=== PATIENT | female | born 1990 | race Caucasian/White ===

== ENCOUNTER → 2016-07-26 | Outpatient (CLI) | payer BC, OTHER ==
[2016-07-26 11:07] LABS: CH 29.9; CHCM 33.5; HCT 35.8 % (34.0-46.0); HDW 2.79; MCH 30.1 pg (25.0-35.0); MCHC 33.4 g/dL (31.0-37.0); MCV 89.9 fL (80.0-100.0); Mean Platelet Volume 8.1; RBC 3.98 m/uL (3.80-5.40); RDW 15.1 % (11.5-15.5); WBC 6.9 k/uL (3.8-10.6)
== END | disposition home or self-care (01) ==
LOC: LABWHC1 10:45
PROVIDERS: ATTEND Obstetrics & Gynecology
DX: Z34.82 Encounter for supervision of other normal pregnancy, second trimester (principal); Z3A.00 Weeks of gestation of pregnancy not specified
CPT/HCPCS: 36415; 82950; 85027

== ENCOUNTER → 2016-10-04 | Outpatient (CLI) | payer BC, OTHER ==
--- NOTE | 2016-10-04 15:35 | US ---
EXAMINATION TYPE: US OB anatomy transabd DATE OF EXAM: 10/04/2016 12:34 PM COMPARISON: US in PACS HISTORY: 26-year-old female [id number] LARGE FOR DATES LGA, pt has no complaints at this time TECHNIQUE: Transabdominal (TA) EXAM MEASUREMENTS: GESTATIONAL AGE / DATING Physician Established: (35 weeks/0 days) EDC: 11/08/2016 Dates by LMP: (35 weeks/0 days) EDC: 11/08/2016 Dates by First Scan: (35 weeks/2 days) EDC: 11/06/2016 Dates by Current Scan for: (35 weeks/1 days) EDC: 11/07/2016 SURVEY IUP: Single PLACENTA: Posterior PREVIA: No previa LYNDSEY: 12.9 cm Normal CERVICAL LENGTH (transabdominal: norm > 3.0cm): 3.1 cm BIOMETRY PRESENTATION: Vertex BPD: 8.9 cm 36 weeks / 1 days HC: 31.9 cm 35 weeks / 6 days AC: 31.5 cm 35 weeks / 3 days FL: 6.8 cm 35 weeks / 0 days ESTIMATED WEIGHT IN GRAMS: 2684 grams ESTIMATED WEIGHT IN LBS/OZS: 5 lbs. 15 oz. WEIGHT PERCENTAGE BASED ON ESTABLISHED DATE: 60.6 % HC/AC: 1.01 Normal FL/AC: 22 Normal HEART RATE: 146 bpm RHYTHM: Normal ANATOMY SEEN (within normal limits): Lateral Vent (< 1 cm) 0.8 cm Four Chamber Heart Stomach Situs Nose / Lips Diaphragm Kidneys (bilateral) -no pelvicaliectasis. Bladder-moderately distended. Three Vessel Cord Longitudinal Spine ANATOMY NOT SEEN: Cisterna Magna (< 1.1 cm) Cerebellum (varies with age) Choroid Plexus (bilateral) Midline Falx Cavus Septi Pellucidi Outflow tracts: LVOT/RVOT Arms (bilateral) Legs (bilateral) Cord Insert Transverse Spine CEMENT TESTER ASSISTANT NOTES: Single, viable IUP/ Growth parameters wnl/ Anatomy visualized on today's scan appe ars wnl IMPRESSION: Single live intrauterine with established gestational age of 35 weeks 0 days by LMP. Curren t ultrasound biometry remains concordant (35 weeks 1 day) placing the child at the 60th percentile fo r weight.
== END | disposition home or self-care (01) ==
LOC: RADUSWWP 12:16
PROVIDERS: ATTEND Obstetrics & Gynecology
DX: O36.63X0 Maternal care for excessive fetal growth, third trimester, not applicable or unspecified (principal); Z3A.35 35 weeks gestation of pregnancy
CPT/HCPCS: 76811

== ENCOUNTER 2016-11-02 06:00 | Inpatient (IN) | payer BC, OTHER ==
--- NOTE | 2016-11-02 05:48 | P.HPOB ---
History of Present Illness H&P Date: 11/02/16 Chief Complaint: Patient is presenting for induction of labor. This patient is a pleasant 26-year-old 4 para 2 female estimated date of confinement 11/08/2016 estimated gestational age 39-2/7 weeks who presents to labor and delivery secondary to history of thromboembolism on oral contraception. Patient was on Lovenox throughout this due to prophylaxis, she is now favorable cervix after 39 weeks and I recommended to proceed with delivery. care otherwise complicated by late to seek care at approximately 17 weeks. Review of Systems Constitutional: Denies chills, Denies fever Ears, nose, mouth and throat: Denies headache, Denies sore throat Cardiovascular: Denies chest pain, Denies shortness of breath Respiratory: Denies cough Gastrointestinal: Reports heartburn Genitourinary: Reports Menstruation: Reports amenorrhea Musculoskeletal: Denies myalgias Neurological: Denies numbness, Denies weakness Past Medical History Past Medical History: Deep Vein Thrombosis (DVT) Additional Past Medical History / Comment(s): Patient had a extensive DVT approximately 1-1/2 years ago that occurred while on the control pill and tobacco use. History of Any Multi-Drug Resistant Organisms: None Reported Additional Past Surgical History / Comment(s): Dilation and currettage Past Anesthesia/Blood Transfusion Reactions: No Reported Reaction Past Psychological History: No Psychological Hx Reported Smoking Status: Former smoker Past Alcohol Use History: None Reported Past Drug Use History: None Reported Medications and Allergies Home Medications Medication Instructions Recorded Confirmed Type Tva-Sbtn-Qupsq Acid 1 tab PO DAILY 02/25/14 06/27/14 History [-U Capsule (formulary)] Allergies Allergy/AdvReac Type Severity Reaction Status Date / Time No Known Allergies Allergy Verified 06/27/14 21:11 Exam - OBG Physical Exam Abdomen: bowel sounds normal, no diffuse tenderness, no bruit present, no guarding noted, no hepatomegaly, no splenomegaly, no mass Vulva: both: normal Cervix: no lesion, no discharge Uterus: enlarged (Fundal height was 38 cm.) Results blood work shows she is A positive, rubella immune, RPR nonreactive, hepatitis B negative, HIV is nonreactive, Glucola was normal, B strep was negative, had normal light of factor V and prothrombin levels. Ultrasounds have been normal. Assessment and Plan (1) Third trimester Narrative/Plan: This is a pleasant 26-year-old 4 para 2 female 39-2/7 weeks gestation with history of thromboembolism in the past who presents now for delivery. Plan is induction of labor and anticipate vaginal delivery. Status: Acute (2) Elective induction of labor planned Status: Acute (3) History of thromboembolism Status: Acute
[2016-11-02] MEDS ORDERED: LIDOCAINE 1% (PF) 10 MG/ML (30 ML SDV) SQ PRN (06:33)
[2016-11-02] MEDS ORDERED: METHYLERGONOVINE 0.2 MG/ML 1 ML AMP IM PRN (06:33)
[2016-11-02] MEDS ORDERED: TERBUTALINE 1 MG/ML VIAL SQ PRN (06:33)
[2016-11-02] MEDS ORDERED: OXYTOCIN 20 UNITS/1000 ML NS 1,000 ML IV SCH ×2 (06:33→14:13)
[2016-11-02] MEDS ORDERED: CARBOPROST TROMETHAMINE 250 MCG/ML 1 ML AMP IM PRN (06:33)
[2016-11-02] MEDS ORDERED: OXYTOCIN 10 UNIT/ML 1 ML VIAL IM PRN (06:33)
[2016-11-02 06:43] VITALS: RESP 16; BMI 28.3
[2016-11-02] MEDS: LACTATED RINGERS 1,000 ML IV SCH ×2 (06:44→10:33)
[2016-11-02 06:50] LABS: Basophils % (A) 0 %; CH 29.3; CHCM 34.1; Eosinophils # (A) 0.1 k/uL (0-0.7); Eosinophils % (A) 1 %; HCT 38.1 % (34.0-46.0); HDW 3.18; HGB 12.8 gm/dL (11.4-16.0); Luc # (Auto) 0.16; Luc % (Auto) 2; Lymphocytes # (A) 2.6 k/uL (1.0-4.8); Lymphocytes % (A) 32 %; MCH 28.9 pg (25.0-35.0); MCHC 33.5 g/dL (31.0-37.0); MCV 86.2 fL (80.0-100.0); Mean Platelet Volume 8.4; Monocytes # (A) 0.4 k/uL (0-1.0); Monocytes % (A) 5 %; Neutrophils % (A) 60 %; RBC 4.42 m/uL (3.80-5.40); RDW 14.4 % (11.5-15.5); WBC 8.2 k/uL (3.8-10.6)
[2016-11-02 06:58] LABS: INR 0.9 (<1.1); Prothrombin Time 9.3 sec (9.0-12.0)
[2016-11-02] MEDS ORDERED: SODIUM CHLORIDE 0.9% 100 ML BAG ONE (11:07)
[2016-11-02] MEDS ORDERED: BUPIVACAINE (PF) 0.25% 30 ML VIAL ONE (11:07)
[2016-11-02] MEDS ORDERED: fentaNYL (PF) 50 MCG/ML 5 ML AMP ONE (11:07)
[2016-11-02] MEDS ORDERED: SIMETHICONE 80 MG CHEWABLE PO PRN (14:13)
[2016-11-02] MEDS ORDERED: LANOLIN CREAM 5 GM TUBE TOPICAL PRN (14:13)
[2016-11-02] MEDS ORDERED: diphenhydrAMINE 50 MG/ML 1 ML VIAL IVP PRN (14:13)
[2016-11-02] MEDS ORDERED: ACETAMINOPHEN TAB 325 MG TAB PO PRN (14:13)
[2016-11-02] MEDS ORDERED: HYDROCORTISONE 2.5% RECTAL CREAM 30 GM TUBE RECTAL PRN (14:13)
[2016-11-02] MEDS ORDERED: BISACODYL 10 MG SUPP RECTAL PRN (14:13)
[2016-11-02] MEDS ORDERED: BENZOCAINE/MENTHOL SPRAY 1 GM/SPRAY AEROSOL TOPICAL PRN (14:13)
[2016-11-02] MEDS ORDERED: ZOLPIDEM 5 MG TAB PO PRN (14:13)
[2016-11-02] MEDS ORDERED: diphenhydrAMINE 25 MG CAP PO PRN (14:13)
[2016-11-02] MEDS ORDERED: WITCH HAZEL 1 EACH MED..PAD TOPICAL PRN (14:13)
[2016-11-02] MEDS: IBUPROFEN 600 MG TAB PO PRN (14:48)
--- NOTE | 2016-11-02 17:31 | P.PROBDLV ---
Vaginal Delivery Note - . Vaginal Delivery Note: Normal vaginal delivery viable male infant Apgars are 9 and 9 delivery time 1343 hrs. Please see dictated H&P for intimate details of this patient's admission. Brief summary this is a pleasant 26-year-old 4 para 2 female 39 and one sevenths weeks gestation who is admitted to labor and delivery for induction of labor. Patient did have coagulation factors checked on admission due to Lovenox use that she quit about 2 or 3 days ago. These are normal. Patient has artificial rupture membranes at 2 cm for clear fluid. Labor is induced with Pitocin per protocol. Patient's labor progresses normally. Patient does get an epidural for pain control. She gets to complete pushes the head to the perineum. Posterior perineum is supported we have controlled delivery of 's head over the intact perineum. Mouth and nares are bulb suctioned there is no evidence of a nuchal cord. There is a hand presenting with posterior shoulder which is delivered spontaneously. We then have deliver the rest this infant's body. This is a vigorous viable male Apgars are 9 and 9 delivery time is 1347 hrs. After delivery of the infant the umbilical cord is doubly clamped and cut appears to be trivascular. Placenta is delivered spontaneously intact. Estimated blood loss is 150 mL. Inspection of perineum shows a first-degree posterior laceration which is repaired with 3-0 Vicryl in the usual fashion. She has previous disruption of the right labia from her first delivery. I did put 2 sutures in this area for added hemostasis. All counts correct 3. No complications. Infant and mother stable delivery room.
[2016-11-02] MEDS: SENNOSIDES-DOCUSATE SODIUM 1 EACH TAB PO SCH (21:53)
--- NOTE | 2016-11-03 05:41 | P.PNOBGVD ---
Subjective - Subjective Patient reports: Reports appetite normal, Reports voiding normally, Reports pain well controlled, Reports ambulating normally : doing well Objective - Latest Vital Signs Latest vital signs: Vital Signs Temp Pulse Resp BP Pulse Ox 11/03/16 00:00 98.3 F 71 16 126/75 11/02/16 20:00 97.6 F 86 16 130/89 11/02/16 16:25 97.4 F L 94 16 108/73 11/02/16 15:25 110 H 16 128/72 11/02/16 14:55 111 H 16 123/76 11/02/16 14:41 102 H 16 123/73 11/02/16 14:25 102 H 16 128/73 11/02/16 14:10 113 H 16 128/60 11/02/16 13:55 98.5 F 113 H 16 128/60 11/02/16 06:39 97 F L 81 16 142/68 99 Intake and Output 11/02/16 11/02/16 11/03/16 14:59 22:59 06:59 Output Total 750 150 Balance -750 -150 Output: Urine 600 Estimated Blood Loss 150 150 Other: # Voids 2 1 1 - Exam Lungs: bilateral: normal Chest: Normal S1, Normal S2 Extremities: Present: normal Abdomen: Present: normal appearance, soft Uterus: Present: normal, firm Assessment and Plan (1) Third trimester Narrative/Plan: day #1. A she is resting without complaints. She is planning going home later today was her baby has any feeding difficulties. Uterus is firm nontender she's having normal lochia. Plan is to continue routine care today. If she does stay she will begin her Lovenox tonight and continue this for 6 weeks due to her history of thromboembolism. Current Visit: Yes Status: Acute Code(s): Z33.1 - STATE, INCIDENTAL SNOMED Code(s): 63811501 (2) Elective induction of labor planned Current Visit: No Status: Acute Code(s): FBF4866 - SNOMED Code(s): 095751198 (3) History of thromboembolism Current Visit: Yes Status: Acute Code(s): Z86.718 - PERSONAL HISTORY OF OTHER VENOUS THROMBOSIS AND EMBOLISM SNOMED Code(s): 658060880
--- NOTE | 2016-11-03 05:43 | P.DS ---
Providers Date of admission: 11/02/16 06:09 Expected date of discharge: 11/03/16 Attending physician: Rolf Salazar Primary care physician: Stated None - Discharge Diagnosis(es) (1) Third trimester Current Visit: Yes Status: Acute (2) Elective induction of labor planned Current Visit: No Status: Acute (3) History of thromboembolism Current Visit: Yes Status: Acute Hospital Course: Please see dictated H&P for intimate details of this patient's admission. Brief summary this is a pleasant 26-year-old 4 para 2 female 39 and one sevenths weeks gestation who is admitted to labor and delivery for induction of labor. Patient is admitted has uncomplicated induction of labor goes on to have a vaginal delivery viable male . Please see dictated delivery note. day 1 patient without complaints she wishes to go home. I did restart her on Lovenox later that evening due to her history of thromboembolism in the past. Patient's felt be stable for discharge home follow up with me in 6 weeks. She is to continue Lovenox for 6 weeks. Call should any fevers chills excessive vaginal bleeding and/or abdominal pain. Procedures: Induction of labor and normal vaginal delivery. Patient Condition at Discharge: Good Plan - Discharge Summary New Discharge Prescriptions: Ibuprofen [Motrin] 600 mg PO Q6HR PRN #40 tab PRN Reason: Mild Pain Or Fever >= 100.5 Discharge Medication List [id number] Acid [-U Capsule (formulary)] 1 tab PO DAILY [History] Ibuprofen [Motrin] 600 mg PO Q6HR PRN #40 tab 11/02/16 [Rx] Follow up Appointment(s)/Referral(s): Rolf Salazar MD [STAFF PHYSICIAN] - 12/08/16 10:15 am Patient Instructions/Handouts: Vaginal Delivery (DC) Activity/Diet/Wound Care/Special Instructions: No intercourse or anything per vagina for 6 weeks. Please call if any fever, chills, excessive vaginal bleeding, and/or abdominal pain. Please restart your Lovenox each evening is taken during the Discharge Disposition: HOME SELF-CARE
[2016-11-03] MEDS: IBUPROFEN 600 MG TAB PO PRN ×2 (06:40→13:29)
[2016-11-03] MEDS: SENNOSIDES-DOCUSATE SODIUM 1 EACH TAB PO SCH (08:16)
[2016-11-03 15:54] VITALS: BP 124/78; PULSE 66; TEMP 98.4
[2016-11-03] MEDS ORDERED: ENOXAPARIN 40 MG/0.4 ML SYRINGE SQ SCH (21:00)
== END 2016-11-03 20:50 | disposition home or self-care (01) | DRG 775 ==
LOC: 4FBP 06:09
PROVIDERS: ADMIT Obstetrics & Gynecology; ATTEND Obstetrics & Gynecology
PROC: 00HU33Z Insertion of Infusion Device into Spinal Canal, Percutaneous Approach (ICD-10-PCS; principal; 2016-11-02)
PROC: 3E0R3CZ (ICD-10-PCS; principal; 2016-11-02)
PROC: 3E033VJ Introduction of Other Hormone into Peripheral Vein, Percutaneous Approach (ICD-10-PCS; principal; 2016-11-02)
PROC: 10907ZC Drainage of Amniotic Fluid, Therapeutic from Products of Conception, Via Natural or Artificial Opening (ICD-10-PCS; principal; 2016-11-02)
PROC: 10E0XZZ Delivery of Products of Conception, External Approach (ICD-10-PCS; principal; 2016-11-02)
DX: O70.0 First degree perineal laceration during delivery (principal); Z86.718 Personal history of other venous thrombosis and embolism; O09.33 Supervision of pregnancy with insufficient antenatal care, third trimester; Z87.891 Personal history of nicotine dependence; Z3A.39 39 weeks gestation of pregnancy; Z37.0 Single live birth
CPT/HCPCS: 85025; 85610; 85730; 88307

== ENCOUNTER → 2017-01-09 | Outpatient (CLI) | payer BC, OTHER ==
[2017-01-09 11:57] LABS: Basophils % (A) 1 %; CHCM 33.1; Eosinophils # (A) 0.1 k/uL (0-0.7); Eosinophils % (A) 2 %; HCT 37.7 % (34.0-46.0); HGB 12.6 gm/dL (11.4-16.0); Luc # (Auto) 0.12; Luc % (Auto) 2; Lymphocytes # (A) 1.9 k/uL (1.0-4.8); Lymphocytes % (A) 35 %; MCH 29.4 pg (25.0-35.0); MCHC 33.4 g/dL (31.0-37.0); Mean Platelet Volume 6.8; Monocytes # (A) 0.3 k/uL (0-1.0); Monocytes % (A) 5 %; Neutrophils # (A) 2.9 k/uL (1.3-7.7); Neutrophils % (A) 54 %; RBC 4.29 m/uL (3.80-5.40); RDW 14.5 % (11.5-15.5); WBC 5.4 k/uL (3.8-10.6); WBC (Perox) 5.44
== END | disposition home or self-care (01) ==
LOC: LABPAT 11:02
PROVIDERS: ATTEND Obstetrics & Gynecology
DX: Z01.812 Encounter for preprocedural laboratory examination (principal)
CPT/HCPCS: 85025

== ENCOUNTER 2017-01-15 06:27 | Day surgery (SDC) | payer BC, OTHER ==
[2017-01-10 14:38] VITALS: BMI 26.5
--- NOTE | 2017-01-12 07:46 | P.HPOB ---
History of Present Illness H&P Date: 01/12/17 Chief Complaint: Desires tubal ligation. This patient is a pleasant 27 year old female who is status post delivery of her 3rd child who is requesting permanent sterilization by tubal cauterization. Patient has had a DVT in the past on oral contraceptives and therefore is not a hormone candidate. Her partner will not get a vasectomy and she does not want any other form of control. This is the method she has chosen. Review of Systems Constitutional: Denies chills, Denies fever Ears, nose, mouth and throat: Denies headache, Denies sore throat Cardiovascular: Denies chest pain, Denies shortness of breath Respiratory: Denies cough Gastrointestinal: Denies abdominal pain, Denies diarrhea, Denies nausea, Denies vomiting Genitourinary: Denies dysuria, Denies hematuria Menstruation: Reports period normal Musculoskeletal: Denies myalgias Integumentary: Denies pruritus, Denies rash Neurological: Denies numbness, Denies weakness Past Medical History Past Medical History: Deep Vein Thrombosis (DVT) Additional Past Medical History / Comment(s): Patient had a extensive DVT approximately 1-1/2 years ago that occurred while on the control pill and tobacco use. History of Any Multi-Drug Resistant Organisms: None Reported Additional Past Surgical History / Comment(s): Dilation and currettage Past Anesthesia/Blood Transfusion Reactions: No Reported Reaction Past Psychological History: No Psychological Hx Reported Smoking Status: Former smoker Past Alcohol Use History: None Reported Past Drug Use History: None Reported - Past Family History Mother Family Medical History: No Reported History Medications and Allergies Home Medications Medication Instructions Recorded Confirmed Type No Known Home Medications [No 01/10/17 01/10/17 History Known Home Medications] Allergies Allergy/AdvReac Type Severity Reaction Status Date / Time No Known Allergies Allergy Verified 01/10/17 14:21 Exam - OBG Physical Exam Abdomen: bowel sounds normal, no diffuse tenderness, no bruit present, no guarding noted, no hepatomegaly, no splenomegaly, no mass Vulva: both: normal Vagina: normal moisture, no discharge Cervix: no lesion, no discharge Uterus: normal size Adnexa: both: normal Assessment and Plan (1) Family planning Narrative/Plan: This is a pleasant 27 yr female who is requesting laparoscopic bilateral tubal cauterization for permanent sterilization. She understands that this surgery is considered permanent, however there is ~20- failures per procedure. She also understands that if she does become she has about a 50% chance of a tubal or ectopic . The patient understands that laparoscopic surgery itself has risks: bleeding, infection, possible injury to bowel/bladder/vessels and or other organs. She also understands she is at increased risks of postoperative thromboembolism due to her history and that this is an elective surgery for which alternatives exist. All of the patient's questions have been answered and a written consent obtained. Status: Acute
[~2017-01-15 06:27] MED LIST: DEXAMETHASONE SOD PHOSPHATE 10 MG/ML 1 ML VIAL IV ONE; HYDROmorphone 1 MG/ML 1 ML SYRINGE IVP PRN; LACTATED RINGERS 1,000 ML IV SCH; LIDOCAINE 1% 20 ML VIAL (10MG/ML) FOR IV START INTRADERMA PRN; ONDANSETRON 4 MG/2 ML VIAL IVP ONE; Pre Op ABX Message 1 EACH MISC MISCELLANE ONE; SCOPOLAMINE 1.5MG/72HR PATCH TRANSDERM ONE
[2017-01-15 06:45] VITALS: RESP 16
[2017-01-15] MEDS ORDERED: MIDAZOLAM 2 MG/2 ML VIAL ONE (07:24)
[2017-01-15] MEDS ORDERED: BUPIVACAINE (PF) 0.5% 30 ML VIAL SQ ONE (07:24)
[2017-01-15] MEDS ORDERED: KETOROLAC 30 MG/ML 1 ML VIAL ONE (07:24)
[2017-01-15] MEDS ORDERED: LIDOCAINE 1% INJ 10MG/ML (20 ML MDV) ONE (07:24)
[2017-01-15] MEDS ORDERED: fentaNYL (PF) 50 MCG/ML 2 ML AMP ONE (07:24)
[2017-01-15] MEDS ORDERED: SUCCINYLCHOLINE CHLORIDE 100 MG/5 ML SYR IV ONE (07:24)
[2017-01-15] MEDS ORDERED: ROCURONIUM BROMIDE 10 MG/ML 10 ML VIAL IV ONE (07:24)
[2017-01-15] MEDS ORDERED: NEOSTIGMINE 1 MG/ML 10 ML VIAL ONE (07:24)
[2017-01-15] MEDS ORDERED: GLYCOPYRROLATE 0.2 MG/ML 2 ML VIAL ONE (07:24)
[2017-01-15] MEDS ORDERED: PROPOFOL 10 MG/ML 20 ML VIAL IV ONE (07:24)
[2017-01-15] MEDS ORDERED: LACTATED RINGERS 1,000 ML IV ONE (08:06)
--- NOTE | 2017-01-15 08:13 | P.OP ---
Date of Procedure: 01/15/17 Preoperative Diagnosis: Multi parity desires permanent sterilization. Postoperative Diagnosis: Same Procedure(s) Performed: Laparoscopic bilateral fallopian tube cauterization. Implants: Anesthesia: RIKKIA Surgeon: Rolf Salazar Estimated Blood Loss (ml): 10 Urine output (ml): 30 Pathology: none sent Condition: stable Disposition: PACU Indications for Procedure: Please see dictated H&P for intimate details of this patient's admission. Brief summary this is a pleasant 27-year-old multi- patient who is requested laparoscopic tubal cauterization for permanent sterilization. Patient understands this is a permanent procedure, although there is a failure rate of approximately 20-25 per thousand procedures done. She understands if she does become she is a 50% chance of tubal or ectopic . Patient also understands that this is elective surgery and does have risks including risks of infection, bleeding, possible injury bowel, bladder, vessels , and/or other organs. Patient understands alternatives exist of the surgery. All the patient's questions are answered written consent is obtained. Operative Findings: This patient had normal-appearing uterus. The ovaries bilaterally appeared normal the left fallopian tube showed some evidence of previous infection but otherwise appeared normal. The right fallopian tube appeared normal. The appendix was visualized and appeared normal as did the upper abdomen. Description of Procedure: This patient is taken to the operating room where she is laid in the supine position. She subsequently undergoes general endotracheal anesthesia without incident. With adequate level of anesthesia she's placed in dorsal lithotomy position. She has a vaginal perineal abdominal prep and drape. I first good on below placed a speculum into the vagina and visualize the cervix. Using an Allis clamp I grabbed the anterior lip of the cervix. A large acorn cannula is then placed into the endocervix and attached to the Allis clamp. The bladder is drained with a red Gates catheter is left in place. With this done the speculum was then removed. I then changed gloves and go up above. Make a 1 cm infraumbilical incision. Through this incision using a 10 mm bladed lists optical trocar in place intraperitoneal. Peritoneal placement is confirmed and a pneumoperitoneum was then created to 12 mm of carbon dioxide gas. Patient's placed in slight Trendelenburg position and then approximately 2 finger breaths above the symphysis pubis I make a [address] a 5 mm trocar. Using a blunt probe I visualize uterus tubes and ovaries. Estimated above the left fallopian tube does have evidence of previous infection somewhat adherent to the ovary and uterus but is free enough to grasp easily with bipolar cautery approximately 4 cm from its insertion and I cauterize a 2-3 cm segment of the fallopian tube. Complete cauterization is noted by the volt meter. Using the bipolar cautery I then grasped the right fallopian tube and using a similar technique cauterize a 2-3 cm segment of the right fallopian tube. With this done a final inspection was done and excellent hemostasis is noted. The lower trochars then removed, the pneumoperitoneum was reduced, and the upper trochars removed. The incisions are then closed using a 4-0 Vicryl interrupted fashion. Steri-Strips and sterile dressing are applied. I do infiltrate both incisions with half percent Marcaine postoperatively. I on below remove the Allis clamp and the acorn cannula and catheter. All counts are correct 3. There are no complications. Patient's taken recovery room satisfactory condition.
[2017-01-15 08:20] VITALS: TEMP 97.4
[2017-01-15] MEDS ORDERED: ONDANSETRON 4 MG/2 ML VIAL IVP ONE (10:06)
[2017-01-15] MEDS ORDERED: METOCLOPRAMIDE 5 MG/ML 2 ML VIAL IVP ONE (10:06)
[2017-01-15 10:31] VITALS: BP 112/74; PULSE 88
== END 2017-01-15 10:58 | disposition home or self-care (01) ==
LOC: OR 06:27
PROVIDERS: ATTEND Obstetrics & Gynecology
DX: Z30.2 Encounter for sterilization (principal); Z86.718 Personal history of other venous thrombosis and embolism; Z87.891 Personal history of nicotine dependence
CPT/HCPCS: 81025; 58670; J2250; J1100; J2710; J2765; J2405; J2001; J3010; J1885; J1170; J0330; J2704

== ENCOUNTER 2019-01-15 09:01 | Emergency (ER) | payer BC, OTHER ==
[2019-01-15 09:17] VITALS: TEMP 99.1
[2019-01-15] MEDS ORDERED: ACET/COD 300 MG/30 MG STARTER PACK 6 TAB BTL PO STA (10:22)
[2019-01-15] MEDS ORDERED: CYCLOBENZAPRINE 10MG STARTER 3 TAB BTL PO STA (10:22)
[2019-01-15 10:23] VITALS: BP 129/94; PULSE 87; RESP 18
--- NOTE | 2019-01-15 10:27 | ED ---
Neck Injury/Pain HPI - General Chief Complaint: Neck Pain/Injury Stated Complaint: neck pain Time Seen by Provider: 01/15/19 09:57 Mode of arrival: ambulatory Limitations: no limitations - History of Present Illness Initial Comments: 29-year-old female presenting today for chief complaint of right-sided neck pain. Patient states that she starts this morning felt a pop in the right several neck. She states she had limited range of motion to the right. She denies any falls or trauma. Patient has history of cancer. Patient states that she has had severe pain and can't move her head to the right without point localized pain within the right lower aspect of the neck/upper shoulder (points to upper trapezius). She denies any numbness tingling or loss sensation of the upper extremities denies any weakness of the upper extremity. Patient states range at the right shoulder does increase the pain. Patient denies experiencing any symptoms prior to the onset of stretching. Remaining review of systems negative. Upon arrival patient appears well-nourished signs of acute distress. - Related Data Previous Rx's Medication Instructions Recorded Cyclobenzaprine [Flexeril] 10 mg PO TID PRN 7 Days #21 tab 01/15/19 Ibuprofen 800 mg PO Q8H PRN 7 Days #21 tablet 01/15/19 Allergies Allergy/AdvReac Type Severity Reaction Status Date / Time No Known Allergies Allergy Verified 01/15/19 09:37 Review of Systems ROS Statement: Those systems with pertinent positive or pertinent negative responses have been documented in the HPI. ROS Other: All systems not noted in ROS Statement are negative. Past Medical History Past Medical History: Deep Vein Thrombosis (DVT) Additional Past Medical History / Comment(s): Patient had a extensive DVT approximately 1-1/2 years ago that occurred while on the control pill and tobacco use. History of Any Multi-Drug Resistant Organisms: None Reported Past Surgical History: No Surgical Hx Reported Additional Past Surgical History / Comment(s): Dilation and currettage Past Anesthesia/Blood Transfusion Reactions: No Reported Reaction Past Psychological History: No Psychological Hx Reported Smoking Status: Former smoker Past Alcohol Use History: None Reported Past Drug Use History: None Reported - Past Family History Mother Family Medical History: No Reported History General Exam - General Exam Comments Initial Comments: General: The patient is awake and alert, in no distress, and does not appear acutely ill. Eye: +3 mm pupils are equal, round and reactive to light, extra-ocular movements are intact. No nystagmus. There is normal conjunctiva bilaterally. No signs of icterus. Ears, nose, mouth and throat: There are moist mucous membranes and no oral lesions. Neck: The neck is supple, there is no tenderness or JVD. Cardiovascular: There is a regular rate and rhythm. No murmur, rub or gallop is appreciated. Respiratory: Lungs are clear to auscultation, respirations are non-labored, breath sounds are equal. No wheezes, stridor, rales, or rhonchi. Gastrointestinal: [Soft, non-distended, non-tender abdomen without masses or organomegaly noted. There is no rebound or guarding present. No CVA tenderness. Bowel sounds are unremarkable.] Musculoskeletal: Normal inspection of the cervical and thoracic spine. Point localized tenderness to palpation of the right trapezius muscle. Limited ROM to the right. Strength 5/5 of the UE b/l. Sensation intact of the UE b/l. Radial pulses equal bilaterally 2+. Neurological: A&O x 3. CN II-XII intact, There are no obvious motor or sensory deficits. Coordination appears grossly intact. Speech is normal. Skin: Skin is warm and dry and no rashes or lesions are noted. Psychiatric: Cooperative, appropriate mood & affect, normal judgment. Limitations: no limitations Course Vital Signs 01/15/19 01/15/19 09:13 10:21 Temperature 99.1 F Pulse Rate 98 87 Respiratory 16 18 Rate Blood Pressure 146/101 129/94 O2 Sat by Pulse 100 97 Oximetry Medical Decision Making - Medical Decision Making Very well-appearing 29-year-old female presenting for pain after stretching in the right side of the neck x 1 hour. Patient is limited range of motion to the right. There is point localized tenderness to palpation of the upper trapezius on the right side. Patient given flexeril in ER, start pack tylenol #3 to take at home. Administration was discussed. Patient was instructed to apply heat to the area. Return parameters were discussed. Patient BP improved with symptomatic treatment. Patient discharged appearing well after discussing the case with Dr. Tristan. Disposition Clinical Impression: Neck muscle strain Disposition: HOME SELF-CARE Condition: Good Instructions (If sedation given, give patient instructions): Cervical Strain (ED) Additional Instructions: Please use medication as discussed. Please follow-up with family doctor in the next 2 days. Please return to emergency room if the symptoms increase or worsen or for any other concerns. Prescriptions: Cyclobenzaprine [Flexeril] 10 mg PO TID PRN 7 Days #21 tab PRN Reason: Muscle Spasm Ibuprofen 800 mg PO Q8H PRN 7 Days #21 tablet PRN Reason: Pain Is patient prescribed a controlled substance at d/c from ED?: No Referrals: Nuris Schuler MD [Primary Care Provider] - 1-2 days Time of Disposition: 10:24
== END 2019-01-15 11:12 | disposition home or self-care (01) ==
LOC: EC 09:01
DX: S16.1XXA Strain of muscle, fascia and tendon at neck level, initial encounter (principal); Z87.891 Personal history of nicotine dependence; X50.9XXA Other and unspecified overexertion or strenuous movements or postures, initial encounter
CPT/HCPCS: 99283

== ENCOUNTER → 2019-06-30 | Outpatient (CLI) | payer OTHER | END | disposition home or self-care (01) | LOC: LABWHC1 14:42 | PROVIDERS: ATTEND Otolaryngology Plastic Surgery within the Head & Neck | DX: R22.0 Localized swelling, mass and lump, head (principal) | CPT/HCPCS: 36415; 82164; 86038; 86235; 86431 ==

== ENCOUNTER → 2021-08-09 | Outpatient (CLI) | payer OTHER ==
--- NOTE | 2021-08-09 15:03 | USB ---
Reason for exam: clinical finding. Indicated problem(s): palpable abnormality and pain in the left breast. Physical Findings: Nurse did not find any significant physical abnormalities on exam. US Breast LT Left complete breast ultrasound includes all four quadrants, the retroareolar region and axilla. Finding demonstrates no cystic or solid lesion seen. These results were verbally communicated with the patient and result sheet given to the patient on 08/09/21. ASSESSMENT: Negative, BI-RAD 1 RECOMMENDATION: Routine screening mammogram of both breasts at age 41. Manage patient on a clinical basis.
== END | disposition home or self-care (01) ==
LOC: RADUSWWP 13:01
PROVIDERS: ATTEND Internal Medicine
DX: N64.4 Mastodynia (principal)